=== PATIENT | male | born 1955 | race Caucasian/White ===

== ENCOUNTER → 2021-10-23 | Outpatient (CLI) | payer MEDICARE, OTHER ==
[~2021-10-23] MED LIST: ALBU90OI INH; BUDE10.22 INH; CIPR500 PO; CYCL10 PO; HYDACE5 PO; IBUP800 PO
== END | disposition home or self-care (01) ==
LOC: LAB 14:28 → LAB SHORT 14:28
DX: R10.9 Unspecified abdominal pain (principal)
CPT/HCPCS: 87338

== ENCOUNTER 2022-02-06 06:52 | Day surgery (SDC) | payer MEDICARE, OTHER ==
[~2022-02-06] VITALS: Ht 188 cm; Wt 78.5 kg
[~2022-02-06 06:52] MED LIST changes: +Children's Clari5 MG PO; +MONT10T PO
[2022-02-06] MEDS ORDERED: LORA10ER PO (07:07)
--- NOTE | 2022-02-06 07:42 | NUR ---
Ambulatory in Day Surgery History, Chart, Medications and Allergies reviewed before start of procedure.Lungs clear T/O to Auscultation. Patient confirms NPO status and agrees with scheduled surgery. Pre-Op teaching done. Pt verbalizes understanding. Patient States Post-Procedure ride home has been arranged.
--- NOTE | 2022-02-06 08:12 | NUR ---
02/06/22 0812 Nia Azar PATIENT ARRIVED TO OR, NOTED RAISED SOFT BUMP SIZE OF A FIFTY CENT PIECE ON LEFT FOREHEAD BELOW THE HAIR LINE, NOTIFIED.
--- NOTE | 2022-02-06 11:55 | NUR ---
Discharge instructions reviewed with patient. Patient verbalizes understanding. Copy given to patient to take home.Incisions with dermabond x 3-c/d/i. RX for [place] including with discharge instructions-copy made. Patient States Post-Procedure ride home has been arranged.
== END 2022-02-06 22:50 | disposition home or self-care (01) ==
LOC: ORSCMMR 06:52 → ORD 07:30 → ORSCMMR 07:30
PROVIDERS: Surgery
PROC: 8E0W4CZ Robotic Assisted Procedure of Trunk Region, Percutaneous Endoscopic Approach (ICD-10-PCS; principal; 2022-02-06 07:30)
PROC: 0YUA4JZ Supplement Bilateral Inguinal Region with Synthetic Substitute, Percutaneous Endoscopic Approach (ICD-10-PCS; principal; 2022-02-06 07:30)
PROC: 0WQF0ZZ Repair Abdominal Wall, Open Approach (ICD-10-PCS; principal; 2022-02-06 07:30)
DX: K40.20 Bilateral inguinal hernia, without obstruction or gangrene, not specified as recurrent (principal); K42.9 Umbilical hernia without obstruction or gangrene; J45.909 Unspecified asthma, uncomplicated; Z86.16 Personal history of COVID-19; Z79.899 Other long term (current) drug therapy
CPT/HCPCS: 49650; 49585; S2900; A9270; C1781; J0690; J1100; J2250; J2405; J2704; J3010; J7120

== ENCOUNTER → 2024-08-09 | Outpatient (CLI) | payer MEDICARE, OTHER ==
[~2024-08-09] MED LIST changes: +LORA10ER PO
[2024-08-15 11:25] LABS: B PERTUSSIS/PARAPERTUSS SOURCE Nasopharyngeal; BORD PARAPERTUSSIS BY PCR Not Detected; BORDETELLA PERTUSSIS BY PCR Not Detected
== END ==
LOC: LAB SHORT 18:45 → LAB 18:45
PROVIDERS: Physician Assistant
DX: R05.9 Cough, unspecified (principal)
CPT/HCPCS: 87798

== ENCOUNTER 2024-09-03 13:20 | Emergency (ER) | payer MEDICARE, OTHER ==
[~2024-09-03] VITALS: Ht 188 cm; Wt 79.4 kg
[2024-09-03] MEDS ORDERED: XARELTO20 M1 PO (14:27)
[2024-09-03] MEDS ORDERED: ADVAIR HFA 230-28 GM (14:29)
[2024-09-03] MEDS ORDERED: ATOR40TA PO (14:30)
[2024-09-03] MEDS ORDERED: INCRUSE ELPT62.5MCG (14:30)
[2024-09-03] MEDS ORDERED: INCRUSE ELLIPTA 62.5 (14:30)
[2024-09-03] MEDS ORDERED: OxyCODONE 7.5 mg/Acetam 325 mg TABLET PO ONE (14:35)
[2024-09-03] MEDS ORDERED: Diphth,Pertuss(Acell),Tet Vac 0.5 ML VIAL IM ONE (14:35)
[2024-09-03] MEDS ORDERED: ACET500 PO (16:22)
[2024-09-03] MEDS ORDERED: LIDO700A20 TOP (16:22)
[2024-09-03 16:35] VITALS: BP 129/90
== END 2024-09-03 16:38 | disposition home or self-care (01) ==
LOC: ER 13:20
DX: S42.032A Displaced fracture of lateral end of left clavicle, initial encounter for closed fracture (principal); S22.060A Wedge compression fracture of T7-T8 vertebra, initial encounter for closed fracture; J45.909 Unspecified asthma, uncomplicated; Z79.01 Long term (current) use of anticoagulants; Z79.51 Long term (current) use of inhaled steroids; Z79.899 Other long term (current) drug therapy; W13.2XXA Fall from, out of or through roof, initial encounter; Y93.H9 Activity, other involving exterior property and land maintenance, building and construction
CPT/HCPCS: 70450; 71250; 73030; 90471; 90715; 99284-25; A9270

== ENCOUNTER → 2024-10-02 | Outpatient (CLI) | payer MEDICARE, OTHER ==
[~2024-10-02] MED LIST changes: +ACET500 PO; +ADVAIR HFA 230-28 GM; +ATOR40TA PO; +INCRUSE ELLIPTA 62.5; +INCRUSE ELPT62.5MCG; +LIDO700A20 TOP; +XARELTO20 M1 PO
== END ==
LOC: LAB SHORT 12:27 → LAB 12:27 → LAB FUT 09-14 07:25 → EDSTATUS 09-14 07:25
DX: A31.0 Pulmonary mycobacterial infection (principal)
CPT/HCPCS: 87116

== ENCOUNTER → 2024-10-16 | Outpatient (CLI) | payer MEDICARE, OTHER | END | disposition home or self-care (01) | LOC: LAB SHORT 08:45 → LAB 08:45 | DX: A31.0 Pulmonary mycobacterial infection (principal) | CPT/HCPCS: 87116 ==